=== PATIENT | male | born 1995 | race Caucasian/White ===

== ENCOUNTER 2020-10-30 19:58 | Emergency (ER) | payer MEDICAID ==
[~2020-10-30] VITALS: Ht 162.6 cm; Wt 63.5 kg
--- NOTE | 2020-10-30 20:00 | NUR ---
25 YO M BIB SELF WITH C/C OF VOMITING, HEADACHE, TREMORS, AFTER TAKING CLARITHROMYCIN, AMOXICILLIN,20 MINUTES AGO. DENIES ALISIA AND KD
--- NOTE | 2020-10-30 20:00 | NUR ---
TO BED AMBULATORY
--- NOTE | 2020-10-30 20:40 | NUR ---
SEEN AND EXAMINED BY LUIS ENRIQUE
[2020-10-30] MEDS ORDERED: diphenhydrAMINE 50 MG/ML VIAL IVP ONE (20:45)
[2020-10-30] MEDS ORDERED: FAMOTIDINE 20 MG/2 ML VIAL IVP ONE (20:45)
[2020-10-30] MEDS ORDERED: methylPREDNISolone SS 125 MG/2 ML VIAL IVP ONE (20:45)
[2020-10-30] MEDS ORDERED: ONDANSETRON 4 MG/2 ML VIAL IVP ONE (20:45)
--- NOTE | 2020-10-30 21:08 | NUR ---
PT AMBULATED TO WITH STEADY GAIT AND BACK TO BED.
[2020-10-30] MEDS ORDERED: NACL 0.9% 1,000 ML IV ONE (21:25)
[2020-10-30 21:50] LABS: BASOPHILS % (AUTO) 0.2 % (0.0-2.0); EOSINOPHILS % (AUTO) 0.1 % (0.0-4.0); HEMATOCRIT 45.1 % (36-52); HEMOGLOBIN 14.8 g/dL (12.0-18.0); LYMPHOCYTES % (AUTO) 9.6 % (20.5-51.1); MEAN CORPUSCULAR HEMOGLOBIN 29 pg (27-31); MEAN CORPUSCULAR HGB CONC 33 g/dL (33-37); MONOCYTES # (AUTO) 0.7 K/uL (0.8-1.0); MONOCYTES % (AUTO) 6.1 % (1.7-9.3); NEUTROPHILS # (AUTO) 8.9 K/uL (1.8-7.7); PLATELET COUNT (AUTO) 301 K/uL (140-450); RED BLOOD CELL COUNT(AUTO) 5.19 MIL/uL (4.20-6.10); RED CELL DISTRIBUTION WIDTH 13.1 % (11.6-13.7); WHITE BLOOD COUNT (AUTO) 10.6 K/uL (4.8-10.8)
--- NOTE | 2020-10-30 22:00 | NUR ---
PT AMBULATED TO WITH STEADY GAIT AND BACK TO BED.
[2020-10-30 22:11] LABS: ALBUMIN 4.2 g/dL (3.4-5.0); CARBON DIOXIDE 27.1 mmol/L (21-32); CREATININE 0.9 mg/dL (0.6-1.3); POTASSIUM 4.1 mmol/L (3.5-5.1); TOTAL BILIRUBIN 0.2 mg/dL (0.0-1.0)
--- NOTE | 2020-10-30 23:42 | NUR ---
PT IS RESTING, EYES ARE CLOSED OPENS IF SPOKEN TO. EQUAL RISE AND FALL OF CHEST WALL, VSS. PT IN STABLE CONDITION. SIDE RAILS X1, BED LOCKED IN LOWEST POSITION.
[2020-10-30] MEDS ORDERED: OMEP20TC10 PO (23:52)
[2020-10-30] MEDS ORDERED: METR500T1 PO (23:52)
[2020-10-30] MEDS ORDERED: BISM262S40 PO (23:52)
[2020-10-30] MEDS ORDERED: [UNRECOGNIZED DRUG - CODE] PO (23:52)
--- NOTE | 2020-10-31 00:21 | NUR ---
PT AMBULATED TO ANDB BACK TO BED WITH STEADY.
[2020-10-31 00:44] VITALS: BP 131/72
--- NOTE | 2020-10-31 00:44 | NUR ---
Patient discharged with v/s stable. Written and verbal after care instructions given and explained. Patient alert, oriented and verbalized understanding of instructions. Ambulatory with steady gait. All questions addressed prior to discharge. ID band removed. Patient advised to follow up with PMD. Rx of PEPTO-BISMOL, FLAGYL, OMEPRAZOLE, TETRACYCLINE given. Patient educated on indication of medication including possible reaction and side effects. Opportunity to ask questions provided and answered.
== END 2020-10-31 00:44 | disposition home or self-care (01) ==
LOC: MED 19:58
DX: T78.49XA Other allergy, initial encounter (principal); R11.2 Nausea with vomiting, unspecified; F41.9 Anxiety disorder, unspecified; R00.0 Tachycardia, unspecified; R10.9 Unspecified abdominal pain; X58.XXXA Exposure to other specified factors, initial encounter
CPT/HCPCS: 36415; 80053; 85025; 96361; 96374; 96375; 99284; J1200; J2405; J2930; J3490; J7030

== ENCOUNTER 2020-11-02 14:01 | Emergency (ER) | payer MEDICAID, SELFPAY ==
[~2020-11-02] VITALS: Ht 167.6 cm; Wt 58.1 kg
[~2020-11-02 14:01] MED LIST: BISM262S40 PO; METR500T1 PO; OMEP20TC10 PO; [UNRECOGNIZED DRUG - CODE] PO
[2020-11-02 14:32] VITALS: BP 151/95
--- NOTE | 2020-11-02 14:35 | NUR ---
PT SENT TO LOBBY
[2020-11-02] MEDS ORDERED: MAG-27 PO (15:35)
[2020-11-02] MEDS ORDERED: ONDA-24 SL (15:36)
[2020-11-02 15:59] VITALS: BP 151/95
--- NOTE | 2020-11-02 16:00 | NUR ---
Patient discharged with v/s stable. Written and verbal after care instructions given and explained. Patient alert, oriented and verbalized understanding of instructions. Ambulatory with steady gait. All questions addressed prior to discharge. ID band removed. Patient advised to follow up with PMD. Rx of ONDANSETRON, MAG HYDROX given. Patient educated on indication of medication including possible reaction and side effects. Opportunity to ask questions provided and answered.
== END 2020-11-02 16:00 | disposition home or self-care (01) ==
LOC: MED 14:01
DX: R11.2 Nausea with vomiting, unspecified (principal); T36.95XA Adverse effect of unspecified systemic antibiotic, initial encounter; Z79.899 Other long term (current) drug therapy; Y92.89 Other specified places as the place of occurrence of the external cause
CPT/HCPCS: 99283